=== PATIENT | female | born 1940 | race Caucasian/White ===

== ENCOUNTER 2021-03-27 11:14 | Outpatient (CLI) | payer MEDICARE, OTHER, SELFPAY ==
--- NOTE | ~2021-03-27 | XR_ITS ---
XR foot LT 2V DATE: 03/27/2021 11:47 INDICATION: Left foot injury TECHNIQUE: AP and lateral views COMPARISON: None FINDINGS: There is a likely old linear cortical avulsion fracture of the dorsal aspect of the tarsal navicular bone. Mild osteoarthritis at the first metatarsophalangeal joint. No fracture or dislocation, periosteal reaction or bone destruction. IMPRESSION: No recent fracture or dislocation Reviewed, dictated and finalized at location A.
== END 2021-03-27 11:15 | disposition home or self-care (01) ==
LOC: ANHIMG 11:23
PROVIDERS: PCP Family Medicine; Visit Provider Nurse Practitioner Family
DX: S99.922A Unspecified injury of left foot, initial encounter (principal); M79.89 Other specified soft tissue disorders; X58.XXXA Exposure to other specified factors, initial encounter
CPT/HCPCS: 73620

== ENCOUNTER 2022-04-03 13:51 | Outpatient (CLI) | payer MEDICARE, OTHER, SELFPAY ==
--- NOTE | ~2022-04-03 | US_ITS ---
EXAMINATION: US art doppler w press LE BI DATE: 04/03/2022 15:07 INDICATION: Peripheral vascular disease. Claudication. TECHNIQUE: Segmental pressures and plethysmographic and Doppler waveforms of the brachial and lower e xtremity arteries were obtained. COMPARISON: None. FINDINGS: Right and left brachial artery pressures of 131 mm Hg and 127 mm Hg, respectively, are concordant (no rmal difference <= 30 mmHg). The right and left high-thigh pressure indices are 1.13 and 1.15, respec tively (normal > 1.2). The right ankle-brachial index (HARJEET) is 1.12 (normal >= 0.9-1). The right great toe-brachial index (T BI) is 0.76 (normal >= 0.6-0.8). The right lower extremity segmental pressure gradients are normal (n ormal gradients <= 20-30 mmHg between adjacent levels on the same leg or the same levels on the two l egs). Arterial waveforms are biphasic with brisk systolic upstrokes throughout the arteries of the ri ght lower limb. The left HARJEET is 1.00. The left TBI is 0.64. The left lower extremity segmental pressure gradients are normal. Arterial waveforms are biphasic with brisk systolic upstrokes throughout the arteries of the left lower limb. IMPRESSION: 1. Normal HARJEET's and TBI's bilaterally. No significant occlusive disease. Reviewed, dictated and finalized at location A.
== END 2022-04-03 13:52 | disposition home or self-care (01) ==
PROVIDERS: PCP Family Medicine; Visit Provider Podiatrist Foot & Ankle Surgery
DX: I73.9 Peripheral vascular disease, unspecified (principal)
CPT/HCPCS: 93923

== ENCOUNTER 2022-08-24 11:23 | Outpatient (CLI) | payer MEDICARE, OTHER, SELFPAY ==
--- NOTE | ~2022-08-24 | US_ITS ---
EXAMINATION: US venous doppler [facility] DATE: 08/24/2022 11:47 INDICATION: Lower limb localized edema. TECHNIQUE: Grayscale ultrasound images without and with compression and Doppler ultrasound images of the bilateral lower extremity veins were obtained. COMPARISON: None. FINDINGS: The visualized portions of right common femoral vein, profunda (deep) femoral vein, femoral vein, pop liteal vein, peroneal veins, posterior tibial veins, and greater saphenous vein outflow are patent. The visualized portions of left common femoral vein, profunda femoral vein, femoral vein, popliteal v ein, peroneal veins, posterior tibial veins, and greater saphenous vein outflow are patent. IMPRESSION: 1. No deep venous thrombosis. Reviewed, dictated and finalized at location A. ER
[2022-08-24 12:05] LABS: Basophils Absolute Auto 0.1 K/mm3 (0.0-0.1); Eosinophils Absolute Auto 0.1 K/mm3 (0-0.3); Eosinophils Percent Auto 1.3 % (0-4.4); Hematocrit 43.4 % (37.0-47.0); Hemoglobin 14.2 g/dL (12.0-15.0); Immature Granulocyte Absolute 0.01 K/mm3 (0.00-0.031); Immature Granulocyte Percent A 0.1 % (0-0.5); Lymphocytes Absolute Auto 1.99 K/mm3 (0.9-3.2); Lymphocytes Percent Auto 28.9 % (18.3-44.2); Mean Corpuscular HGB Conc 32.7 g/dl (32-36); Mean Corpuscular Hemoglobin 30.7 pg (26-34); Mean Corpuscular Volume 93.7 fl (80-100); Mean Platelet Volume 9.6 fl (7.4-10.4); Monocytes Absolute Auto 0.6 K/mm3 (0.1-0.6); Neutrophils Absolute Auto 4.2 K/mm3 (1.3-6.7); Neutrophils Percent Auto 60.7 % (45.5-73.1); Platelet Count Result 325 k/mm3 (150-375); Red Blood Count 4.63 M/mm3 (4.2-5.4); Red Cell Distribution Width 13.8 % (11.5-14.5); White Blood Count 6.9 K/mm3 (4.5-10.0)
[2022-08-24 12:16] LABS: Anion Gap 7 mmol/L (8-16); Blood Urea Nitrogen 13 mg/dL (7-17); Calcium 9.5 mg/dL (8.4-10.2); Carbon Dioxide 27 mmol/L (22-30); Chloride 106 mmol/L (98-107); Estimated Glomerular Filt Rate > 60; Glucose 121 mg/dL (65-110); Potassium 3.4 mmol/L (3.4-5.0); Sodium 140 mmol/L (137-145)
[2022-08-24 12:46] LABS: Thyroid Stimulating Hormone 0.493 uIU/mL (0.465-4.680)
== END 2022-08-24 11:24 | disposition home or self-care (01) ==
PROVIDERS: PCP Family Medicine; Visit Provider Family Medicine
DX: R60.0 Localized edema (principal); R20.0 Anesthesia of skin
CPT/HCPCS: 36415; 80048; 82607; 84443; 85025; 93970

== ENCOUNTER 2022-10-15 09:01 | Outpatient (CLI) | payer MEDICARE, OTHER, SELFPAY ==
--- NOTE | 2022-10-15 11:00 | NEURO_ITS ---
Impression: Patient reports a history of paraesthesias in the left lower extremity. # Normal Nerve Conduction Studies.. # Normal EMG/needle exam. # Clinical correlation recommended. Motor Nerve Conduction Lower Extremities Peroneal Nerve Conduction Velocity (m/sec) Terminal Latency (msec) Response Voltage(mV) Popliteal space-Ankle Ankle Extensor Dig Brevis Popliteal space Ankle Right 45-46 3.1 4-4 5 Left 44-47 3.8 4-4 6 Tibial Nerve Conduction Velocity (m/sec) Terminal Latency (msec) Response Voltage(mV) Popliteal space-Ankle Ankle-Extensor Dig Brevis Popliteal space Ankle Right 45 4.9 6 12 Left 45 4.8 6 9 F-waves Peroneal Nerve (ms) Tibial Nerve (ms) Right 47.7 48.9 Left 47.4 48.3 Sensory Nerve Conduction Lower Extremities Sural Nerve Stimulation Terminal Latency (msec) Ankle Response Voltage (uV) Ankle Response Velocity (m/sec) Right 3.6 13 44 Left 3.9 14 41 Superficial Peroneal Nerve Stimulation Terminal Latency (msec) Ankle Response Voltage (uV) Ankle Response Velocity (m/sec) Right 3.7 12 43 Left 3.3 10 48 Left Right Muscles Examined Fibrillation Fasciculation Scarcity Voltage Duration Left Right Left Right Left Right Left Right Left Right X X Ant Tibialis X X Gastroc X X Fibularis Long X X Flex Dig Long X X Ext Dig Brev Abd Hallucis Quadriceps Paraspinals MTDD
== END 2022-10-15 09:02 | disposition home or self-care (01) ==
PROVIDERS: PCP Family Medicine; Visit Provider Family Medicine
DX: R20.0 Anesthesia of skin (principal)
CPT/HCPCS: 95886; 95910

== ENCOUNTER 2022-11-02 14:37 | Outpatient (CLI) | payer MEDICARE, OTHER, SELFPAY ==
--- NOTE | ~2022-11-02 | DEXA_ITS ---
Bone Density Report Name: HARJEET RAMIREZ Age: 82 Sex: Female Ethnicity: White Date of : 1940 Indication: postmenopausal; screening for osteoporosis; height loss; cancer; hysterectomy; rheumatoid arthritis; Referring Provider: NI LICEA Study: Bone densitometry was performed. Exam Date: November 02, 2022 Accession number: [id number] Bone Density: Region BMD T-score Z-score Classification AP Spine(L1-L4) 0.784 -2.4 0.4 Osteopenia Femoral Neck (Left) 0.636 -1.9 0.5 Osteopenia Total Hip (Left) 0.742 -1.6 0.6 Osteopenia Femoral Neck (Right) 0.680 -1.5 0.9 Osteopenia Total Hip (Right) 0.785 -1.3 0.9 Osteopenia Total Hip Mean 0.763 -1.5 0.8 Osteopenia World Health Organization criteria for BMD impression classify patients as: Normal (T-score at or above -1.0), Osteopenia (T-score between -1.0 and -2.5), or Osteoporosis (T-score at or below -2.5). 10-year Fracture Risk(1): Major Osteoporotic Fracture 17% Hip Fracture 8.5% Reported Risk Factors: [place] (), Neck BMD=0.636, BMI=20.4, smoking, rheumatoid arthritis (1) FRAX(R) Version 3.08. Fracture probability calculated for an untreated patient. Fracture probability may be lower if the patient has received treatment. Clinical Information Provided by Patient: Smokes Has rheumatoid arthritis Has used the following medications: Vitamin D, Calcium Has the following medical conditions: Cancer, Hysterectomy Patient maximum height was 63 Menopause Age: 47 No regular weight bearing exercise Drinks caffeinated beverages Onset of menses at age 13 Number of children 3 Impression: The patient has low bone mass, based on the Total Spine T-score. The patient has an estimated ten-year risk of hip fracture of 8.5% and an estimated ten-year risk of major fracture of 17%, based on the WHO FRAX algorithm. The patient has risk factors, including: smoking. Discussion: BONE DENSITY IS LOW AT ONE OR MORE SKELETAL SITES. THE PATIENT'S BMD AND CLINICAL RISK FACTORS CONTRIBUTE TO THIS PATIENT'S INCREASED RISK OF FRACTURE. This patient's lowest T-score is low at one or more skeletal sites. It meets the World Health Organization's (WHO) criteria for ?low bone mass? (T-score between -1.0 and -2.5). The patient's 10-year risk of hip fracture as calculated by FRAX exceeds the threshold where pharmacological therapy is recommended by the National Osteoporosis Foundation (NOF). However, all treatment decisions require clinical judgment and consideration of individual patient factors, including patient preferences, comorbidities, previous drug use, risk factors not captured in the FRAX model (e.g., frailty, falls, vitamin D deficiency, increased bone turnover, interval significant decline in bone density) and possible under or overestimation o
== END 2022-11-02 14:38 | disposition home or self-care (01) ==
LOC: ANHIMG 14:39
PROVIDERS: PCP Family Medicine; Visit Provider Nurse Practitioner Family
DX: Z78.0 Asymptomatic menopausal state (principal); M85.88 Other specified disorders of bone density and structure, other site; M85.852 Other specified disorders of bone density and structure, left thigh; M85.851 Other specified disorders of bone density and structure, right thigh
CPT/HCPCS: 77080

== ENCOUNTER 2023-06-03 10:20 | Outpatient (CLI) | payer MEDICARE, OTHER, SELFPAY ==
--- NOTE | ~2023-06-03 | XR_ITS ---
XR chest 2V DATE: 06/03/2023 10:41 INDICATION: Chronic cough. Smoker. TECHNIQUE: PA and lateral views COMPARISON: None FINDINGS: Mild cardiomegaly. Aortic calcification and unfolding. No hilar or mediastinal enlargement. Bilateral hyperinflation consistent with COPD. No pulmonary infiltrate or consolidation, pleural effusion or pulmonary vascular congestion or pneumo thorax is detected. Osteopenia. IMPRESSION: COPD Reviewed, dictated and finalized at location L. IMPRESSION: COPD
== END 2023-06-03 10:21 | disposition home or self-care (01) ==
PROVIDERS: PCP Family Medicine; Visit Provider Family Medicine
DX: R05.3 Chronic cough (principal); J44.9 Chronic obstructive pulmonary disease, unspecified
CPT/HCPCS: 71046

== ENCOUNTER 2023-07-13 14:21 | Outpatient (CLI) | payer MEDICARE, OTHER, SELFPAY ==
--- NOTE | 2023-07-14 13:50 | WPDPFTINT ---
PFT Procedure Performed PFT Procedure Performed Plethysmography (Lung Vol) Diffusing Cap (DLCO) Flow Vol Loop Spirometry w/o Bronchodil PFT Interpretation This is a pulmonary function test with spirometry, plethysmography and diffusing capacity. The test was performed and results interpreted in accordance with the 2019 and 2005 ATS/ERS Task Force guidelines respectively using the Global Lung Function Initiative-2012 reference equations. Patient demonstrated good effort and cooperation. Reproducibility criteria were met. The quality of the spirometry maneuver was Grade A. Findings: Spirometry: There is decreased maximal expiratory airflow at all lung volumes with concave expiratory flow tracing. The contour the inspiratory flow tracing is normal. The FVC is 2.24 L, 99% predicted. The FEV1 is 1.43 L, 83% predicted. The FEV1: FVC ratio is 64%. Plethysmography: The total lung capacity is 4.85 L, 103% predicted. The functional residual capacity is 3.47 L, 127% predicted. The residual volume is 2.61 L, 112% predicted. Diffusing capacity: The diffusing capacity unadjusted for hemoglobin and carboxyhemoglobin is 6.6, 36% predicted. The diffusing capacity adjusted for alveolar volume is 2.58, 62% predicted. Impression: The spirometry is normal without evidence of an obstructive abnormality. The lung volumes are normal. The diffusing capacity unadjusted for hemoglobin and carboxyhemoglobin is moderately decreased and remains mildly decreased when adjusted for alveolar volume. There are no prior studies for comparison
== END 2023-07-13 14:22 | disposition home or self-care (01) ==
LOC: ANHPFT 14:22
PROVIDERS: PCP Family Medicine; Visit Provider Nurse Practitioner Family
DX: J44.9 Chronic obstructive pulmonary disease, unspecified (principal)
CPT/HCPCS: 94375; 94726; 94729

== ENCOUNTER 2024-06-22 11:34 | Emergency (ER) | payer MEDICARE, OTHER, SELFPAY ==
--- NOTE | ~2024-06-22 | CT_ITS ---
EXAMINATION: CTA chest PE protocol DATE: 06/22/2024 15:27 INDICATION: Chronic obstructive pulmonary disease. Chest pain. Abnormal chest radiograph. TECHNIQUE: Computed tomography angiography (CTA) of the chest was performed with 100 mL Omnipaque-350 intravenous contrast timed to evaluate the pulmonary arteries. Coronal maximum intensity projection 3D-reconstructions were created by the technologist. Automated exposure control and iterative reconst ruction technique were employed. The dose-length product was 134.40 mGy-cm. COMPARISON: Chest 2 views 06/22/2024 FINDINGS: There is mild emphysema. There are greater than 40 scattered nodules in the lungs measuring up to 12 mm. There is mild atelectasis bilaterally. No pleural effusion. There are nodules in the th yroid measuring up to 2.0 cm. The heart size is normal. There are coronary artery calcifications. No pericardial effusion. There is no pulmonary embolus. There are multiple ill-defined masses in the erica er measuring up to 4.2 cm. Partially visualized is a mass in the tail of the pancreas. There is sever e thoracic spondylosis. IMPRESSION: 1. Partially visualized mass in the tail of the pancreas, likely primary adenocarcinoma. 2. Liver masses and lung nodules, consistent with metastatic disease. CT abdomen and pelvis with cont rast is recommended. Ultrasound-guided core needle biopsy of a liver mass is recommended. 3. Mild emphysema. 4. Thyroid nodules. No further evaluation is recommended given the patient's comorbidities. Reviewed, dictated and finalized at location A. N IRONER IMPRESSION: 1. Partially visualized mass in the tail of the pancreas, likely primary adenoc arcinoma. 2. Liver masses and lung nodules, consistent with metastatic disease. CT abdome n and pelvis with contrast is recommended. Ultrasound-guided core needle biopsy of a liver mass is recommended. 3. Mild emphysema. 4. Thyroid nodules. No further evaluation is recommended given the patient's co morbidities.
--- NOTE | ~2024-06-22 | CT_ITS ---
EXAMINATION: CT abdomen pelvis w con DATE: 06/22/2024 17:32 INDICATION: Pancreatic mass. TECHNIQUE: Computed tomography (CT) of the abdomen and pelvis was performed with 100 mL Omnipaque 350 intravenous contrast. Automated exposure control and iterative reconstruction technique were employe d. The dose-length product was 194.71 mGy-cm. COMPARISON: Chest CT 06/22/2024 FINDINGS: The visualized portions of lung bases demonstrate mild atelectasis and pulmonary nodules me asuring up to 9 mm. No pleural effusion. The heart size is normal. No pericardial effusion. There are greater than 40 masses in the liver measuring up to 5.0 cm. The gallbladder, spleen, and adrenal gla nds are normal. There are cysts in the pancreas measuring up to 11 mm. There is a 5.5 cm hypodense ma ss in the pancreatic tail. The adrenal glands and right kidney is normal. There are cysts in left kid ruby measuring up to 1.6 cm. The bladder is distended. There is diverticulosis of the colon without ev idence of diverticulitis. There are no dilated loops of bowel. There is left para-aortic lymphadenopa thy. There is no ascites. There is severe lumbar spondylosis. IMPRESSION: 1. Pancreatic mass, likely primary adenocarcinoma. 2. Liver masses, lung nodules, and left para-aortic lymphadenopathy, consistent with metastatic disea se. Ultrasound-guided core needle biopsy of a liver mass is recommended. Reviewed, dictated and finalized at location A. SKINNER IMPRESSION: 1. Pancreatic mass, likely primary adenocarcinoma. 2. Liver masses, lung nodules, and left para-aortic lymphadenopathy, consistent with metastatic disease. Ultrasound-guided core needle biopsy of a liver mass is recommended.
--- NOTE | ~2024-06-22 | XR_ITS ---
Clinical Indication: Chest pain, chest heaviness PA and lateral views of the chest: Comparison: 06/03/2023 Findings: Multiple pulmonary nodules are present bilaterally, new from prior exam. Largest visible no dule measures 1 cm the right lung apex. Cardiomediastinal silhouette is within normal limits. Bones a nd soft tissues are unremarkable. Impression: Multiple relatively small bilateral pulmonary nodules. Metastatic disease is a consideration. Chest C T recommended for further evaluation. Reviewed, dictated and finalized at location . MATH TUTOR Impression: Multiple relatively small bilateral pulmonary nodules. Metastatic disease is a consideration. Chest CT recommended for further evaluation.
--- NOTE | 2024-06-22 11:35 | ECG_ITS ---
Test Date: 2024-06-22 11:46:25 Measurements Intervals [place] Rate: 105 P: 76 [place]: 148 QRS: -23 QRSD: 71 T: 17 QT: 325 QTc: 430 Interpretive Statements SINUS TACHYCARDIA LOW QRS VOLTAGE IN PRECORDIAL LEADS ST-T WAVE ABNORMALITY IN ANTEROLATERAL LEADS- CONSIDER ISCHEMIA BASELINE ARTIFACT- I, III, AVR, AVL, AVF, V4-V5 ABNORMAL ECG No previous ECG available for comparison Electronically Signed On 06-22-2024 12:26:06 [employer] by Nikita Garcia D.O.
[2024-06-22 11:38] VITALS: BP 150/91; PULSE 114; RESP 20; TEMP 36.2; O2SAT 99
--- NOTE | 2024-06-22 13:51 | ED_ITS ---
HPI - Chest Pain General Chief Complaint: Chest Pain <Ramila Perry APRN - Last Filed: 06/22/24 13:54> Stated Complaint: chest pain <Ramila Perry APRN - Last Filed: 06/22/24 13:54> Time Seen by Provider: 06/22/24 13:45 <Ramila Perry APRN - Last Filed: 06/22/24 13:54> Focused HPI: patient is an 83-year-old female who presents to the ER with chest pain that started abruptly around 4:00 a.m. this morning. She reports it woke her up out of her sleep. Patient reports she walked around her house found and ate some food, which helped it resolve. She reports she has a history of COPD and continues to smoke cigarettes. Patient denies lower extremity edema. She reports the pain in her chest is now down to a 2/10 and is in her mid sternum. Patient reports she uses inhalers at home to control her COPD. She also reports she was diagnosed with GERD about 40 years ago but has not had any problems nor taken medication for it is since then. GENERAL: Well-appearing, well-nourished, and in no acute distress. HEAD: Normocephalic, atraumatic. CHEST: Clear to auscultation. ?No respiratory distress. HEART: Tachycardia, regular rhythm.? NEURO: ?Alert and oriented x3. Patient screened in triage and initial orders placed.? ?Additional care and disposition to be based upon?diagnostic testing and treatment. <Ramila Perry APRN - Last Filed: 06/22/24 13:54> History of Present Illness HPI narrative: 83-year-old female presenting with chest pain. States that she woke up in the middle of the night with severe epigastric pain. She told her son who made her come in for evaluation. She denies shortness of breath. States that her pain is now 2/10. <Quiana Jenkins MD - Last Filed: 06/22/24 18:55> Related Data Home Medications: Home Medications Medication Instructions Recorded Confirmed aspirin 81 mg tablet,delayed 81 mg PO DAILY 09/26/20 06/21/24 release (Adult Aspirin Regimen) calcium carbonate 600 mg PO BID 09/26/20 06/21/24 pyridoxine (vitamin B6) 100 mg 100 mg PO DAILY 09/26/20 06/21/24 tablet letrozole 2.5 mg tablet 2.5 mg PO DAILY 02/19/22 06/21/24 melatonin 3 mg tablet 3 mg PO QHS 06/01/23 06/21/24 <Ramila Perry APRN - Last Filed: 06/22/24 13:54> Allergies/Adverse Reactions: Allergies Allergy/AdvReac Type Severity Reaction Status Date / Time No Known Allergies Allergy Verified 06/22/24 14:02 <Ramila Perry APRN - Last Filed: 06/22/24 13:54> Review of Systems Review of Systems: All systems reviewed & are unremarkable except as noted in HPI and below <Quiana Jenkins MD - Last Filed: 06/22/24 18:55> [facility] Past Medical History Medical History: Medical History Abnormal ultrasound of breast Adenocarcinoma of left breast Anxiety Bereavement Bilateral hand pain Body mass index (BMI) less than 20 Breast mass, left Chronic cough Decreased range of motion of fingers of both hands Depression Foot pain, bilateral Lateral epicondylitis Left shoulder pain Leg edema Leg numbness intermediate (current) use of anticoagulants Memory loss Osteopenia Screening mammogram for high-risk patient Tobacco abuse Wart of hand Weight loss <Ramila Perry APRN - Last Filed: 06/22/24 13:54> Surgical History Surgical History: Surgical History History of lumpectomy of left breast <Ramila Perry APRN - Last Filed: 06/22/24 13:54> Family History Family History: Family History Father No problems noted. Mother Acute myocardial infarction Sibling Lung cancer <Ramila Perry APRN - Last Filed: 06/22/24 13:54> Social History Social History: Social History Smoking status: Current every day smoker (does not want to quit and smoking 1/2ppd) Tobacco type: cigarettes Second hand tobacco smoke exposure: Yes Alcohol intake: current Substance use: never Substance use type: does not use Do You Feel Safe in your Home?: Yes Lack of Transportation: No Lack of Food: Never True Current Housing: I Have Housing Concerned About Future Housing: No Difficulty Paying Gas/Electric Bills: No Difficulty Paying for Meds: No Currently Unemployed: No Education: Grade School Difficulty w/ Childcare or Family Care: No Living arrangements: alone Occupation/Education: retired 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 Gender identity (if verbalized by the patient): Female <Ramila Perry, FUR DRESSER - Last Filed: 06/22/24 13:54> Exam Narrative: GENERAL: Frail appearing, no acute distress, pleasant cooperative HEAD: Normocephalic, atraumatic. EYES: PERRLA and EOMI. ENT: Grossly unremarkable NECK: Supple. CHEST: Clear to auscultation. No respiratory distress. + tenderness over lower sternum HEART: Regular rate and rhythm ABDOMEN: Soft, nontender, nondistended EXTREMITIES: Normal range of motion. SKIN: Warm, dry, no rash. NEURO: Alert and oriented x3. PSYCH: Normal mood and affect. <Quiana Jenkins MD - Last Filed: 06/22/24 18:55> Course Vital Signs Vital signs: Vital Signs Temperature 97.2 F L 06/22/24 11:38 Pulse Rate 114 H 06/22/24 11:38 Respiratory Rate 20 06/22/24 11:38 Blood Pressure 150/91 H 06/22/24 11:38 Pulse Oximetry 99 06/22/24 11:38 Oxygen Delivery Room Air 06/22/24 11:38 Temperature 97.2 F L 06/22/24 11:38 Pulse Rate 102 H 06/22/24 14:04 Respiratory Rate 17 06/22/24 14:04 Blood Pressure 151/68 H 06/22/24 14:04 Pulse Oximetry 100 06/22/24 14:04 Oxygen Delivery Room Air 06/22/24 11:38 <Ramila Perry APRN - Last Filed: 06/22/24 13:54> Vital Signs Temperature 97.2 F L 06/22/24 11:38 Pulse Rate 114 H 06/22/24 11:38 Respiratory Rate 20 06/22/24 11:38 Blood Pressure 150/91 H 06/22/24 11:38 Pulse Oximetry 99 06/22/24 11:38 Oxygen Delivery Room Air 06/22/24 11:38 Temperature 97.2 F L 06/22/24 11:38 Pulse Rate 102 H 06/22/24 14:04 Respiratory Rate 17 06/22/24 14:04 Blood Pressure 151/68 H 06/22/24 14:04 Pulse Oximetry 100 06/22/24 14:04 Oxygen Delivery Room Air 06/22/24 11:38 <Quiana Jenkins MD - Last Filed: 06/22/24 18:55> MDM - Chest Pain MDM Narrative Medical decision making narrative: 83-year-old female presenting with chest and epigastric pain. Patient tachycardic on arrival, this had resolved by the time I evaluated her. Remainder of vitals are within normal limits. Blood work without significant abnormalities. Troponin undetectable. CTA of the chest obtained which shows numerous pulmonary nodules and a mass of the pancreas. States that she has a history of breast cancer currently in remission. She follows at site min with a Dr. Sinclair. Spoke with the Oncology fellow with [facility]. He agrees with outpatient workup regarding this new pancreatic mass. Discussed the findings with the patient and advised that she call her oncologist tomorrow morning as well as her PCP. She and her family are agreeable with this plan. Discharged in stable condition. <Quiana Jenkins MD - Last Filed: 06/22/24 18:55> Lab Data Result diagrams: 06/22/24 14:11 06/22/24 14:11 <Ramila Perry, FUR DRESSER - Last Filed: 06/22/24 13:54> Labs: Lab Results 06/22/24 06/22/24 06/22/24 Range/Units 14:11 14:11 16:35 WBC 10.3 H (4.5-10.0) K/mm3 RBC 4.61 (4.2-5.4) M/mm3 Hgb 13.8 (12.0-15.0) g/dL Hct 41.6 (37.0-47.0) % MCV 90.2 (80-100) fl MCH 29.9 (26-34) pg MCHC 33.2 (32-36) g/dl RDW 13.6 (11.5-14.5) % Plt Count 308 (150-375) k/mm3 MPV 10.0 (7.4-10.4) fl Immature Gran % (Auto) 0.4 (0-0.5) % Neut % (Auto) 74.7 H (45.5-73.1) % Lymph % (Auto) 14.4 L (18.3-44.2) % [place] % (Auto) 9.1 H (2.6-8.5) % Eos % (Auto) 0.6 (0-4.4) % Baso % (Auto) 0.8 (0.2-1.2) % Lymph # (Auto) 1.48 (0.9-3.2) K/mm3 [place] # (Auto) 0.9 H (0.1-0.6) K/mm3 Eos # (Auto) 0.1 (0-0.3) K/mm3 Baso # (Auto) 0.1 (0.0-0.1) K/mm3 Abs Immat Gran (auto) 0.04 H (0.00-0.031) K/mm3 Absolute Neuts (auto) 7.7 H (1.3-6.7) K/mm3 Absolute Nucleated RBC 0.000 (0.0-0.012) K/mm3 Nucleated RBC % 0.0 (0.0-0.2) % PT 14.0 (11.1-14.7) Seconds INR 1.0 APTT 22.1 L (22.3-36.8) Seconds Sodium 135 L (137-145) mmol/L Potassium 3.7 (3.4-5.0) mmol/L Chloride 100 (98-107) mmol/L Carbon Dioxide 33 H (22-30) mmol/L Anion Gap 2 L (4-12) mmol/L BUN 8 D (7-17) mg/dL Creatinine 0.40 L (0.7-1.0) mg/dL Estim Creat Clear Calc 61 ml/min Estimated GFR > 60 (59 - ) Glucose 174 H (65-110) mg/dL Calcium 10.0 (8.4-10.2) mg/dL Total Bilirubin 0.8 (0.2-1.3) mg/dL AST 55 H (14-36) U/L ALT 44 H (6-35) U/L Alkaline Phosphatase 202 H (38-126) U/L Troponin I < 0.012 (0.000-0.034) ng/mL NT-Pro-B Natriuret Pep 237 H Cancelled (19.9-100) pg/mL Total Protein 7.0 (6.3-8.2) g/dL Albumin 3.8 (3.5-5.1) g/dL Lipase 32 (23-300) U/L Urine Color Yellow (Yellow) Urine Appearance Clear (Clear) Urine pH 7.0 (5.0-9.0) Ur Specific [place] > 1.045 H (1.001-1.035) Urine Protein Negative (Negative) mg/dL Urine Glucose (UA) 1+ H (Negative) mg/dL Urine Ketones Trace H (Negative) mg/dL Ur Blood (Man) Negative (Negative) Urine Nitrate Negative (Negative) Urine Bilirubin Negative (Negative) Urine Urobilinogen 0.2 (<2.0) mg/dL Leukocyte Esterase Rfl Negative (Negative) DANIKA/UL Influenza A (RT-PCR) Negative (Negative) Influenza B (RT-PCR) Negative (Negative) RSV (RT-PCR) Negative (Negative) SARS-CoV-2 RNA (RT-PCR) Negative (Negative) <Ramila Perry, FUR DRESSER - Last Filed: 06/22/24 13:54> Lab Results 06/22/24 06/22/24 06/22/24 Range/Units 14:11 14:11 16:35 WBC 10.3 H (4.5-10.0) K/mm3 RBC 4.61 (4.2-5.4) M/mm3 Hgb 13.8 (12.0-15.0) g/dL Hct 41.6 (37.0-47.0) % MCV 90.2 (80-100) fl MCH 29.9 (26-34) pg MCHC 33.2 (32-36) g/dl RDW 13.6 (11.5-14.5) % Plt Count 308 (150-375) k/mm3 MPV 10.0 (7.4-10.4) fl Immature Gran % (Auto) 0.4 (0-0.5) % Neut % (Auto) 74.7 H (45.5-73.1) % Lymph % (Auto) 14.4 L (18.3-44.2) % [place] % (Auto) 9.1 H (2.6-8.5) % Eos % (Auto) 0.6 (0-4.4) % Baso % (Auto) 0.8 (0.2-1.2) % Lymph # (Auto) 1.48 (0.9-3.2) K/mm3 [place] # (Auto) 0.9 H (0.1-0.6) K/mm3 Eos # (Auto) 0.1 (0-0.3) K/mm3 Baso # (Auto) 0.1 (0.0-0.1) K/mm3 Abs Immat Gran (auto) 0.04 H (0.00-0.031) K/mm3 Absolute Neuts (auto) 7.7 H (1.3-6.7) K/mm3 Absolute Nucleated RBC 0.000 (0.0-0.012) K/mm3 Nucleated RBC % 0.0 (0.0-0.2) % PT 14.0 (11.1-14.7) Seconds INR 1.0 APTT 22.1 L (22.3-36.8) Seconds Sodium 135 L (137-145) mmol/L Potassium 3.7 (3.4-5.0) mmol/L Chloride 100 (98-107) mmol/L Carbon Dioxide 33 H (22-30) mmol/L Anion Gap 2 L (4-12) mmol/L BUN 8 D (7-17) mg/dL Creatinine 0.40 L (0.7-1.0) mg/dL Estim Creat Clear Calc 61 ml/min Estimated GFR > 60 (59 - ) Glucose 174 H (65-110) mg/dL Calcium 10.0 (8.4-10.2) mg/dL Total Bilirubin 0.8 (0.2-1.3) mg/dL AST 55 H (14-36) U/L ALT 44 H (6-35) U/L Alkaline Phosphatase 202 H (38-126) U/L Troponin I < 0.012 (0.000-0.034) ng/mL NT-Pro-B Natriuret Pep 237 H Cancelled (19.9-100) pg/mL Total Protein 7.0 (6.3-8.2) g/dL Albumin 3.8 (3.5-5.1) g/dL Lipase 32 (23-300) U/L Urine Color Yellow (Yellow) Urine Appearance Clear (Clear) Urine pH 7.0 (5.0-9.0) Ur Specific [place] > 1.045 H (1.001-1.035) Urine Protein Negative (Negative) mg/dL Urine Glucose (UA) 1+ H (Negative) mg/dL Urine Ketones Trace H (Negative) mg/dL Ur Blood (Man) Negative (Negative) Urine Nitrate Negative (Negative) Urine Bilirubin Negative (Negative) Urine Urobilinogen 0.2 (<2.0) mg/dL Leukocyte Esterase Rfl Negative (Negative) DANIKA/UL Influenza A (RT-PCR) Negative (Negative) Influenza B (RT-PCR) Negative (Negative) RSV (RT-PCR) Negative (Negative) SARS-CoV-2 RNA (RT-PCR) Negative (Negative) <Quiana Jenkins MD - Last Filed: 06/22/24 18:55> Imaging Data Radiologist's impression: ITS Impressions Chest X-Ray 06/22/24 13:33 Impression: Multiple relatively small bilateral pulmonary nodules. Metastatic disease is a consideration. Chest CT recommended for further evaluation. Chest CTA 06/22/24 15:30 IMPRESSION: 1. Partially visualized mass in the tail of the pancreas, likely primary adenocarcinoma. 2. Liver masses and lung nodules, consistent with metastatic disease. CT abdomen and pelvis with contrast is recommended. Ultrasound-guided core needle biopsy of a liver mass is recommended. 3. Mild emphysema. 4. Thyroid nodules. No further evaluation is recommended given the patient's comorbidities. Abdomen/Pelvis CT 06/22/24 17:33 IMPRESSION: 1. Pancreatic mass, likely primary adenocarcinoma. 2. Liver masses, lung nodules, and left para-aortic lymphadenopathy, consistent with metastatic disease. Ultrasound-guided core needle biopsy of a liver mass is recommended. <Quiana Jenkins MD - Last Filed: 06/22/24 18:55> Critical Care Time Critical Care Time Critical Care Time: No <Quiana Jenkins MD - Last Filed: 06/22/24 18:55> Discharge Plan Discharge Clinical Impression: Abdominal pain, epigastric, Pancreatic mass <Ramila Perry APRN - Last Filed: 06/22/24 13:54> Patient Disposition: Home, Self-Care <Ramila Perry APRN - Last Filed: 06/22/24 13:54> Condition: Stable <Ramila Perry APRN - Last Filed: 06/22/24 13:54> Instructions: Antibiotic Form, Epigastric Pain (ED) <Ramila Perry APRN - Last Filed: 06/22/24 13:54> Additional Instructions: The workup today shows a tumor in your pancreas. There are also small tumors in your lungs in your liver. Please follow-up very closely with your oncologist and PCP. If your symptoms worsen or other concerning symptoms arise, please return to the ER. <Ramila Perry APRN - Last Filed: 06/22/24 13:54> Prescriptions: No Action melatonin 3 mg tablet 3 mg PO QHS aspirin [Adult Aspirin Regimen] 81 mg tablet,delayed release (DR/EC) 81 mg PO DAILY pyridoxine (vitamin B6) 100 mg tablet 100 mg PO DAILY calcium carbonate 600 mg calcium (1,500 mg) tablet 600 mg PO BID letrozole 2.5 mg tablet 2.5 mg PO DAILY Hold Instructions: Patient not taking until [place] in 07/2023 hydroxyzine HCl 25 mg tablet 25 mg PO BID PRN (Reason: insomnia) Qty: 30 1RF Trelegy Ellipta 100-62.5-25 mcg blister with device 1 inh inhalation Q24H Qty: 60 5RF <Ramila Perry APRN - Last Filed: 06/22/24 13:54> Follow-up/Referrals: Jameson Finn MD [Primary Care Provider] - <Ramila Perry APRN - Last Filed: 06/22/24 13:54>
[2024-06-22] MEDS: ASPIRIN 81 MG CHEWABLE TABLET 324 MG PO (14:02)
[2024-06-22 14:04] VITALS: BP 151/68; PULSE 102; RESP 17; O2SAT 100
[2024-06-22] MEDS: FAMOTIDINE 20 MG TABLET PO (14:16)
[2024-06-22 14:17] LABS: Basophils Absolute Auto 0.1 K/mm3 (0.0-0.1); Basophils Percent Auto 0.8 % (0.2-1.2); Eosinophils Absolute Auto 0.1 K/mm3 (0-0.3); Eosinophils Percent Auto 0.6 % (0-4.4); Hematocrit 41.6 % (37.0-47.0); Hemoglobin 13.8 g/dL (12.0-15.0); Immature Granulocyte Absolute 0.04 K/mm3 (0.00-0.031); Immature Granulocyte Percent A 0.4 % (0-0.5); Lymphocytes Absolute Auto 1.48 K/mm3 (0.9-3.2); Lymphocytes Percent Auto 14.4 % (18.3-44.2); Mean Corpuscular HGB Conc 33.2 g/dl (32-36); Mean Corpuscular Hemoglobin 29.9 pg (26-34); Mean Corpuscular Volume 90.2 fl (80-100); Monocytes Absolute Auto 0.9 K/mm3 (0.1-0.6); Monocytes Percent Auto 9.1 % (2.6-8.5); Neutrophils Absolute Auto 7.7 K/mm3 (1.3-6.7); Neutrophils Percent Auto 74.7 % (45.5-73.1); Platelet Count Result 308 k/mm3 (150-375); Red Blood Count 4.61 M/mm3 (4.2-5.4); Red Cell Distribution Width 13.6 % (11.5-14.5); White Blood Count 10.3 K/mm3 (4.5-10.0)
[2024-06-22 14:28] LABS: Partial Thromboplastin Time 22.1 Seconds (22.3-36.8)
[2024-06-22 14:53] LABS: Influenza A QL RT-PCR Negative (Negative); Influenza B QL RT-PCR Negative (Negative); RSV RNA, RT-PCR Negative (Negative); SARS-CoV-2 RNA PCR Negative (Negative)
[2024-06-22 14:58] LABS: Alanine Aminotransferase 44 U/L (6-35); Albumin Level 3.8 g/dL (3.5-5.1); Alkaline Phosphatase 202 U/L (38-126); Anion Gap 2 mmol/L (4-12); Aspartate Amino Transferase 55 U/L (14-36); Bilirubin,Total 0.8 mg/dL (0.2-1.3); Blood Urea Nitrogen 8 mg/dL (7-17); Carbon Dioxide 33 mmol/L (22-30); Chloride 100 mmol/L (98-107); Estimated CRCL calculation 61 ml/min; Estimated Glomerular Filt Rate > 60; Glucose 174 mg/dL (65-110); Lipase 32 U/L (23-300); Potassium 3.7 mmol/L (3.4-5.0); Sodium 135 mmol/L (137-145)
[2024-06-22 15:10] LABS: NT Pro B Type Natriuretic Pept 237 pg/mL (19.9-100); Troponin I < 0.012 ng/mL (0.000-0.034)
[2024-06-22 15:30] VITALS: BP 143/76; PULSE 90; RESP 20; O2SAT 100
[2024-06-22 16:45] VITALS: BP 160/82; PULSE 88; RESP 16; O2SAT 99
[2024-06-22 17:09] LABS: Add Urine Microscopic? NO; Appearance Urine Clear (Clear); Bilirubin Urine Negative (Negative); Blood Urine Negative (Negative); Color Urine Yellow (Yellow); Glucose Urine UA 1+ mg/dL (Negative); Ketones Urine Trace mg/dL (Negative); Leukocyte Esterase Ur Negative LEU/UL (Negative); Nitrate Urine Negative (Negative); Protein Urine Negative (Negative); Specific Grav Ur > 1.045 (1.001-1.035); Urobilinogen Urine 0.2 mg/dL (<2.0)
[2024-06-22 17:30] VITALS: BP 143/78; PULSE 83; RESP 20; O2SAT 98
== END 2024-06-22 19:15 | disposition home or self-care (01) ==
PROVIDERS: Emergency Medicine; Registered Nurse; Emergency Provider Emergency Medicine; PCP Family Medicine
DX: R10.13 Epigastric pain (principal); K86.9 Disease of pancreas, unspecified; Z20.822 Contact with and (suspected) exposure to COVID-19; J44.9 Chronic obstructive pulmonary disease, unspecified; M85.80 Other specified disorders of bone density and structure, unspecified site; F17.210 Nicotine dependence, cigarettes, uncomplicated; Z85.3 Personal history of malignant neoplasm of breast; R16.0 Hepatomegaly, not elsewhere classified; R91.8 Other nonspecific abnormal finding of lung field; R59.1 Generalized enlarged lymph nodes; E04.1 Nontoxic single thyroid nodule; R00.0 Tachycardia, unspecified; R94.31 Abnormal electrocardiogram [ECG] [EKG]; Z79.82 Long term (current) use of aspirin
CPT/HCPCS: 36415; 71046; 71275; 74177; 80053; 81003; 83690; 83880; 84484; 85025; 85610; 85730; 87637; 93005; 99284; A9270; Q9967